=== PATIENT | female | born 1985 | race Caucasian/White ===

== ENCOUNTER 2024-01-05 09:37 | Outpatient (CLI) | payer BC, SELFPAY ==
[2024-01-05 09:53] VITALS: PULSE 95; O2SAT 97
[2024-01-05 09:54] VITALS: BP 138/88; PULSE 89; TEMP 36.7
--- NOTE | 2024-01-05 11:23 | OB.TRI.HP_ITS ---
HPI - General General Date of Admission: 01/05/24 Date of Service: 01/05/24 Chief Complaint: loss of fluid HPI Narrative NITESH ASIF, is a 38 F who presents with leaking of fluid at 16 weeks gestation. She states yesterday she had 3 large gushes of fluid. The gushes of fluid were large amounts and it was clear to pink-tinged. She reports the fluid saturated through her clothing. She has had no significant leaking today. She is just noted blood-tinged mucus today. No cramping or pain. She offers no other complaints at this time. Physical Exam Const alert and no apparent distress General Appearance: comfortable HEENT normocephalic Resp normal respiratory effort GI soft to palpation, non-tender and non-distended Assessment & Plan (1) 16 weeks gestation of : (2) Amniotic fluid leaking: PLAN: Bedside TAUS performed showing subjectively low fluid. There is a pocket of fluid behind head that is 5.5 cm. There is however no fluid around the body of the fetus. SSE showing closed and thick cervix, blood tinged mucous, no pooling and negative fern. Discussed with patient concern for previable PPROM given her story and subjectively low fluid on ultrasound. Discussed case with MFM who agrees with patient having a formal ultrasound tomorrow with MFM in [place] given there is no MFM in [place] tomorrow, and patient lives in [place]. Message sent to office staff about getting patient scheduled tomorrow for follow up. Reviewed return precautions with patient. Questions answered. (3) AMA (advanced maternal age) primigravida 35+: (4) Obesity:
== END 2024-01-05 11:28 | disposition home or self-care (01) ==
LOC: OBT 09:51 → WP 09:52
PROVIDERS: Visit Provider Obstetrics & Gynecology
DX: O42.912 Preterm premature rupture of membranes, unspecified as to length of time between rupture and onset of labor, second trimester (principal); O09.512 Supervision of elderly primigravida, second trimester; O99.212 Obesity complicating pregnancy, second trimester; Z3A.16 16 weeks gestation of pregnancy
CPT/HCPCS: 76815; 99221; G0378